=== PATIENT | male | born 1960 | race Caucasian/White ===

== ENCOUNTER 2016-11-29 11:43 | Emergency (ER) | payer BC ==
[~2016-11-29] VITALS: Ht 180.3 cm; Wt 90.0 kg
[2016-11-29 11:46] VITALS: BP 193/69
[2016-11-29] MEDS ORDERED: OXYcodone/APAP 5/325MG TABLET PO ONE (12:30)
[2016-11-29] MEDS ORDERED: OXYcodone/APAP 5/325MG TABLET ONE (12:32)
[2016-11-29] MEDS ORDERED: OXYC10TA6 PO (12:36)
[2016-11-29] MEDS ORDERED: ALPR2TAB2 PO (12:36)
== END 2016-11-29 12:41 | disposition home or self-care (01) ==
LOC: ED 12:35
DX: G89.29 Other chronic pain (principal); M54.2 Cervicalgia; M54.9 Dorsalgia, unspecified; M19.90 Unspecified osteoarthritis, unspecified site; Z76.0 Encounter for issue of repeat prescription
CPT/HCPCS: 99283